=== PATIENT | female | born 1995 | race Caucasian/White ===

== ENCOUNTER 2020-01-01 17:48 | Outpatient (CLI) | payer BC ==
[2020-01-01 18:56] LABS: APPEARANCE,URINE CLEAR; BILIRUBIN,URINE NEGATIVE (NEGATIVE); COLOR,URINE YELLOW; GLUCOSE, URINE NEGATIVE (NEGATIVE); KETONES,URINE TRACE mg/dL (NEGATIVE); LEUKOCYTE ESTERASE,URINE NEGATIVE (NEGATIVE); NITRITE,URINE NEGATIVE (NEGATIVE); PROTEIN,URINE NEGATIVE (NEGATIVE); URINE SPECIFIC GRAVITY 1.012; UROBILINOGEN,URINE NEGATIVE mg/dL (<2.0)
[2020-01-01 19:06] LABS: UR PRO/CREAT RATIO RESULT 0.1 mg/mg (0.0-0.2); URINE CREATININE 80.5 mg/dL (16-327); URINE PROTEIN 8.6 mg/dL (<12)
[2020-01-01 19:08] LABS: URINE AMPHETAMINES SCREEN NEGATIVE; URINE BARBITURATES SCREEN NEGATIVE; URINE BENZODIAZEPINES SCREEN NEGATIVE; URINE COCAINE SCREEN NEGATIVE; URINE MARIJUANA (THC) SCREEN NEGATIVE; URINE METHADONE SCREEN NEGATIVE; URINE PHENCYCLIDINE SCREEN NEGATIVE
[2020-01-01 19:14] LABS: HEMATOCRIT 33.1 % (36.0-47.0); HEMOGLOBIN 11.8 g/dL (12.0-15.5); MEAN CORPUSCULAR HEMOGLOBIN 32.2 pg (27.0-33.4); MEAN CORPUSCULAR HGB CONC 35.7 g/dL (32.0-36.0); MEAN CORPUSCULAR VOLUME 90 fl (80-97); PLATELET COUNT 134 10^3/uL (150-450); RED BLOOD COUNT 3.67 10^6/uL (3.72-5.28); RED CELL DISTRIBUTION WIDTH 13.5 % (11.5-14.0); WHITE BLOOD COUNT 6.2 10^3/uL (4.0-10.5)
[2020-01-01 19:27] LABS: ALBUMIN 3.6 g/dL (3.5-5.0); ALKALINE PHOSPHATASE 156 U/L (38-126); ANION GAP 9 (5-19); ASPARTATE AMINO TRANSFERASE 54 U/L (14-36); BILIRUBIN,DIRECT 0.1 mg/dL (0.0-0.4); BILIRUBIN,TOTAL 0.4 mg/dL (0.2-1.3); BLOOD UREA NITROGEN 11 mg/dL (7-20); CALCIUM 8.8 mg/dL (8.4-10.2); CARBON DIOXIDE 17 mmol/L (22-30); CHLORIDE 109 mmol/L (98-107); GLUCOSE 153 mg/dL (75-110); POTASSIUM 3.6 mmol/L (3.6-5.0); TOTAL PROTEIN 6.7 g/dL (6.3-8.2); URIC ACID 4.9 mg/dL (2.5-6.2)
--- NOTE | 2020-01-01 20:05 | Non Stress Test Report ---
Non Stress Test Datetime Report Generated by CPN: 01/01/2020 20:05 DEMOGRAPHIC EGA NST: 39.6 INDICATION Indication for Study (NST) Other: Gestational age greater than 32 weeks VITAL SIGNS Temperature - NST: 97.1 Pulse - NST: 90 RESP - NST: 17 NBPSYS NST: 116 NBPDIA NST: 77 MONITORING Monitor Explained: Monitor Explained; Test Explained; Patient Verbalized Understanding Time on Monitor: 01/01/2020 18:15 Time off Monitor: 01/01/2020 19:40 NST Duration: 85 NST INTERVENTIONS NST Interventions: PO Hydration; Reposition Patient Physician Notified NST: Dr. Doherty BABY A: [id number] BABY A Movement : Present Contraction Frequency : None FHR Baseline : 135 Accelerations : 15X15 Decelerations : None Variability : Moderate 6-25bpm NST Review: Meets Criteria for Reactive NST NST Review and Verified By : CLARA Klein NST Results: Reactive NST REPORT Report Trigger: Send Report
[2020-01-01 20:45] LABS: CHLAM PCR NOT DETECTED (NOT DETECT)
== END 2020-01-01 19:45 | disposition home or self-care (01) ==
LOC: LC 17:48
PROVIDERS: ATTEND Student in an Organized Health Care Education/Training Program
DX: O16.3 Unspecified maternal hypertension, third trimester (principal); Z3A.39 39 weeks gestation of pregnancy
CPT/HCPCS: 36415; 80053; 80307; 81001; 82570; 83615; 84156; 84550; 85027; 87081; 87491; 87591

== ENCOUNTER 2020-01-02 17:46 | Inpatient (IN) | payer BC ==
[2020-01-02] MEDS ORDERED: MAG HYDROX/AL HYDROX/SIMETH SUSP 30 ML UDCUP PO PRN (18:00)
[2020-01-02] MEDS ORDERED: ZOLPIDEM TARTRATE 5 MG TABLET PO PRN (18:00)
[2020-01-02] MEDS ORDERED: OXYTOCIN/NORMAL SALINE 20 UNIT/1,000 ML RTUINJ IV PRN (18:00)
[2020-01-02] MEDS ORDERED: RINGERS SOLUTION,LACTATED 300 ML IV ONE (18:00)
[2020-01-02] MEDS ORDERED: DINOPROSTONE 10 MG VAGINAL INSERT.SR PV ONE (18:00)
[2020-01-02] MEDS ORDERED: ACETAMINOPHEN 325 MG TABLET PO PRN (18:00)
[2020-01-02 18:26] LABS: APPEARANCE,URINE CLEAR; BILIRUBIN,URINE NEGATIVE (NEGATIVE); COLOR,URINE STRAW; GLUCOSE, URINE NEGATIVE (NEGATIVE); KETONES,URINE NEGATIVE (NEGATIVE); LEUKOCYTE ESTERASE,URINE TRACE (NEGATIVE); NITRITE,URINE NEGATIVE (NEGATIVE); PROTEIN,URINE NEGATIVE (NEGATIVE); URINE SPECIFIC GRAVITY 1.002; UROBILINOGEN,URINE NEGATIVE mg/dL (<2.0)
[2020-01-02 18:29] LABS: ABSOLUTE EOSINOPHILS # (AUTO) 0.1 10^3/uL (0.0-0.6); ABSOLUTE LYMPHOCYTES (AUTO) 1.7 10^3/uL (0.5-4.7); ABSOLUTE MONOCYTES (AUTO) 0.5 10^3/uL (0.1-1.4); ABSOLUTE NEUT (AUTO) 4.1 10^3/uL (1.7-8.2); BASOPHILS % (AUTO) 0.5 % (0-2); EOSINOPHILS % (AUTO) 1.6 % (0-6); HEMATOCRIT 33.9 % (36.0-47.0); LYMPHOCYTES % (AUTO) 26.7 % (13-45); MEAN CORPUSCULAR HEMOGLOBIN 32.1 pg (27.0-33.4); MEAN CORPUSCULAR HGB CONC 35.3 g/dL (32.0-36.0); MEAN CORPUSCULAR VOLUME 91 fl (80-97); MONOCYTES % (AUTO) 7.2 % (3-13); PLATELET COUNT 151 10^3/uL (150-450); RED BLOOD COUNT 3.73 10^6/uL (3.72-5.28); TOTAL CELLS COUNTED % (AUTO) 100 %; WHITE BLOOD COUNT 6.4 10^3/uL (4.0-10.5)
[2020-01-02] MEDS ORDERED: DINOPROSTONE 10 MG VAGINAL INSERT.SR ONE (18:33)
[2020-01-02] MEDS: RINGERS SOLUTION,LACTATED 1,000 ML IV PRN (18:35)
[2020-01-02 18:41] LABS: URINE AMPHETAMINES SCREEN NEGATIVE; URINE BARBITURATES SCREEN NEGATIVE; URINE BENZODIAZEPINES SCREEN NEGATIVE; URINE COCAINE SCREEN NEGATIVE; URINE METHADONE SCREEN NEGATIVE; URINE PHENCYCLIDINE SCREEN NEGATIVE
[2020-01-02 18:51] LABS: URINE MARIJUANA (THC) SCREEN NEGATIVE
--- NOTE | 2020-01-02 20:18 | Admission Physical ---
Datetime Report Generated by CPN: 01/02/2020 20:17 CURRENT ADMISSION Chief Complaint: Scheduled Induction of Labor Chief Complaint Other: Scheduled IOL at 40.0 wks EGA d/t A1GDM. Patient denies ctx, LOF or VB Good FM Last EFW 01/01/20 was 3565 gms or 7lb 14 oz complicated by Rubella non-immune and late transfer of care from [facility] Indication for Induction: Maternal Diabetes Admit Impression : Term, Intrauterine ; No Active Labor; Intact Membranes; Induction of Labor Admit Plan: Admit to Unit; Initiate Labor Protocol; Initiate Labor Induction Protocol ALLERGIES Medication Allergies: No Medication Allergies: No Known Allergies (01/02/2020) Latex: Latex Allergies OBSTETRICAL HISTORY EDC: 01/02/2020 00:00 : 1 Para: 0 Term: 0 : 0 SAB: 0 IAB: 0 Ectopic: 0 Livin Cesareans: 0 VBACs: 0 Multiple Births: 0 Gestational Diabetes: No Rh Sensitization: No Incompetent Cervix: No KAI: No Infertility: No ART Treatment: No Uterine Anomaly: No IUGR: No Hx Previous C/S: No Macrosomia: No Hx Loss/Stillborn: No PIH: No Hx : No Placenta Previa/Abruption: No Depression/PP Depression: No PTL/PROM: No Post Hemorrhage: No Current Procedures: Ultrasound Obstetrical History Comments: G1- Current SEE RECORDS Alcohol: Yes Marijuana : No Cocaine: No Other Illicit Drugs: No Cigarettes: Never Smoker. [id number] MEDICAL HISTORY Diabetes: Yes Diabetes Type: Gestational Diabetes Blood Transfusion: No Pulmonary Disease (Asthma, TB): No Breast Disease: No Hypertension: No Salicylic Acid Blender Surgery: No Heart Disease: No Hosp/Surgery: No Autoimmune Disorder: No Anesthetic Complications: No Kidney Disease: No Abnormal Pap Smear: No Neuro/Epilepsy: No Psychiatric Disorders: No Other Medical Diseases: No Hepatitis/Liver Disease: No Significant Family History: No Varicosities/Phlebitis: No Trauma/Violence : No Thyroid Dysfunction: No INFECTIOUS HISTORY Gonorrhea: No Genital Herpes: No Chlamydia: No Tuberculosis: No Syphilis: No Hepatitis: No HIV/AIDS Exposure: No Rash or Viral Illness: No HPV: No PHYSICAL EXAM General: Normal HEENT: Normal Neurologic: Normal Thyroid: Normal Heart: Normal Lungs: Normal Breast: Normal Back: Normal Abdomen: Normal Genitourinary Exam: Normal Extremities: Normal DTRs: Normal Pelvic Type: Adequate Vital Signs: Reviewed VAGINAL EXAM Dilatation: 2 Effacement: 50 Station: -3 Contraction Comments: no regular MEMBRANES Pooling: Negative Membranes: Intact FETUS A EGA: 40.0 Monitoring: External US FHR- Baseline: 130 Variability: Moderate 6-25bpm Accelerations: 15X15 Decelerations: None FHR Category: Category I Estimated Weight (gm): 3565 Presentation: Vertex Admit Comment: G1 at 40.0 wks with complicated by A1GDM, late to PNC from [facility] and RNI for IOL -Admit to LDR -NPO except chips, popsicles and ice. LR at 125cc/hr -CEFM and toco -cervidil at 1845 -GBS tested at [facility]: pending, will try to obtain records -O positive -RNI, MMR -cervidil overnight, remove at 0645 for one hour break then pitocin low dose protocol. May remove earlier PRN labor/ distress -Patient plans epidural for delivery PLANS FOR LABOR AND DELIVERY Labor and Delivery: None Pain Management: Epidural Feeding Preference: Both Benefit of Breast Feed Discussed: Yes Circumcision: No INFORMED CONSENT Informed Consent Obtained: Vaginal Delivery; Section Delivery; Induction of Labor; Risks, Benefits and Alternatives Discussed Signature: with User ID: [email or web address] : with User ID: [email or web address]
[2020-01-02] MEDS ORDERED: ZOLPIDEM TARTRATE 5 MG TABLET ONE (22:18)
[2020-01-03] MEDS ORDERED: OXYTOCIN/NORMAL SALINE 20 UNIT/1,000 ML RTUINJ IV PRN (07:11)
[2020-01-03] MEDS ORDERED: OXYTOCIN/NORMAL SALINE 20 UNIT/1,000 ML RTUINJ ONE (07:58)
[2020-01-03] MEDS ORDERED: MISOPROSTOL 0.2 MG TABLET ONE (07:59)
[2020-01-03] MEDS ORDERED: OXYTOCIN 10 UNIT/ML VIAL ONE (07:59)
[2020-01-03] MEDS ORDERED: LIDOCAINE 0.5% INJ-PF (5 MG/ML) 50 ML SDV ONE (07:59)
[2020-01-03] MEDS ORDERED: HYDROMORPHONE HCL INJ/PF 2 MG/ML AMPULE IV ONE (09:58)
[2020-01-03] MEDS ORDERED: HYDROMORPHONE HCL INJ/PF 2 MG/ML AMPULE ONE (10:00)
[2020-01-04 12:05] LABS: ABSOLUTE LYMPHOCYTES (AUTO) 1.4 10^3/uL (0.5-4.7); ABSOLUTE MONOCYTES (AUTO) 0.5 10^3/uL (0.1-1.4); ABSOLUTE NEUT (AUTO) 4.8 10^3/uL (1.7-8.2); BASOPHILS % (AUTO) 0.6 % (0-2); EOSINOPHILS % (AUTO) 0.5 % (0-6); HEMATOCRIT 34.4 % (36.0-47.0); HEMOGLOBIN 12.3 g/dL (12.0-15.5); MEAN CORPUSCULAR HEMOGLOBIN 32.3 pg (27.0-33.4); MEAN CORPUSCULAR HGB CONC 35.9 g/dL (32.0-36.0); MEAN CORPUSCULAR VOLUME 90 fl (80-97); MONOCYTES % (AUTO) 7.3 % (3-13); PLATELET COUNT 128 10^3/uL (150-450); RED BLOOD COUNT 3.82 10^6/uL (3.72-5.28); RED CELL DISTRIBUTION WIDTH 13.8 % (11.5-14.0); SEGMENTED NEUTROPHILS % (AUTO) 71.6 % (42-78); TOTAL CELLS COUNTED % (AUTO) 100 %; WHITE BLOOD COUNT 6.8 10^3/uL (4.0-10.5)
[2020-01-04] MEDS ORDERED: HYDROMORPHONE HCL INJ/PF 2 MG/ML AMPULE IV ONE (12:44)
[2020-01-04] MEDS ORDERED: HYDROMORPHONE HCL INJ/PF 2 MG/ML AMPULE ONE (12:47)
[2020-01-04] MEDS ORDERED: OXYTOCIN/NORMAL SALINE 20 UNIT/1,000 ML RTUINJ ONE ×2 (15:05→20:31)
[2020-01-04] MEDS ORDERED: EPHEDRINE SULFATE INJ 50 MG/1 ML AMPULE ONE (16:31)
[2020-01-04] MEDS ORDERED: BUPIVACAINE HCL 0.25 % INJ/PF (2.5 MG/1 ML) 30 ML VIAL ONE (16:32)
[2020-01-04] MEDS ORDERED: FENTANYL/BUPIVACAINE/NS/PF 300 MCG/150 ML RTUINJ EPI ONE (16:32)
[2020-01-04] MEDS ORDERED: CEFAZOLIN SODIUM 2 GM in DEXTROSE 5%-WATER 50 ML IV PRN (20:15)
[2020-01-04] MEDS ORDERED: CEFAZOLIN INJ 1 GM VIAL ONE (20:17)
[2020-01-04] MEDS ORDERED: CITRIC ACID/SODIUM CITRATE ORAL SOLN 15 ML UDCUP ONE (20:17)
[2020-01-04] MEDS ORDERED: LIDOCAINE 2% INJ-PF (20 MG/ML) 10 ML AMPUL ONE (20:27)
[2020-01-04] MEDS ORDERED: MORPHINE SULFATE 10 MG/ML INJ ONE ×2 (20:30→22:52)
[2020-01-04] MEDS ORDERED: OXYTOCIN 10 UNIT/ML VIAL ONE (20:30)
[2020-01-04] MEDS ORDERED: MIDAZOLAM 2 MG/2 ML INJ ONE (20:30)
[2020-01-04] MEDS ORDERED: ONDANSETRON HCL INJ/PF 4 MG/2 ML SDV ONE (20:31)
[2020-01-04] MEDS ORDERED: FENTANYL CITRATE INJ/PF 100 MCG/2 ML AMPUL ONE (21:40)
[2020-01-04] MEDS ORDERED: ACETAMINOPHEN 325 MG TABLET PO PRN (21:54)
[2020-01-04] MEDS ORDERED: HYDROMORPHONE HCL INJ/PF 2 MG/ML AMPULE IV PRN (21:54)
[2020-01-04] MEDS ORDERED: OXYTOCIN/NORMAL SALINE 20 UNIT/1,000 ML RTUINJ IV PRN (21:54)
[2020-01-04] MEDS ORDERED: DIPH/PERTUSS(ACELL)/TETANUS VAC/PF 0.5 ML SYR (>=10YO) IM PRN (21:54)
[2020-01-04] MEDS ORDERED: ACETAMINOPHEN 1,000 MG/100 ML RTUPB IV PRN (21:54)
[2020-01-04] MEDS ORDERED: PROMETHAZINE HCL INJ 25 MG/1 ML VIAL IV PRN (21:54)
[2020-01-04] MEDS ORDERED: SIMETHICONE 80 MG TAB.CHEW PO PRN (21:54)
[2020-01-04] MEDS ORDERED: OXYCODONE-ACETAMINOPHEN 5-325 MG TABLET PO PRN ×2 (21:54)
[2020-01-04] MEDS ORDERED: MEASLES,MUMPS&RUBELLA VACC/PF 0.5 ML VIAL SUBCUT PRN (21:54)
--- NOTE | 2020-01-04 21:54 | Brief Operative Note ---
BRIEF OPERATIVE REPORT DATE OF SURGERY: 01/04/20 TIME OF SURGERY: 21:00 PREOPERATIVE DIAGNOSIS: 40+1ega, , Arrest of Dilation at 6cm, A1GDM POSTOPERATIVE DIAGNOSIS: NATHALY - delivered SURGEON: KRISTINE PRATT FINDINGS: VFI delivered at 2113, Apgars 9/9, Weight 7#8oz, body cord. UOP 150ml, IVF 1500ml, EBL 600ml. QBL 737ml COMPLICATIONS: None ESTIMATED BLOOD LOSS: 600 TISSUE REMOVED OR ALTERED: placenta and cord TECHNICAL PROCEDURE: Primary section
--- NOTE | 2020-01-04 21:59 | Operative Report ---
Operative Report DATE OF SURGERY: 01/04/20 PREOPERATIVE DIAGNOSIS: 40+2ega, , Arrest of Dilation at 6cm, A1GDM POSTOPERATIVE DIAGNOSIS: NATHALY OPERATION: Primary section SURGEON: KRISTINE PRATT ANESTHESIA: Epidural TISSUE REMOVED OR ALTERED: placenta and cord COMPLICATIONS: None ESTIMATED BLOOD LOSS: 600 QUANTITATIVE BLOOD LOSS: 737 INTRAOPERATIVE FINDINGS: VFI delivered at 2114, Apgars 9/9, Weight 7#8oz, body cord. UOP 150ml, IVF 1500ml, EBL 600ml. QBL 737ml, normal bilateral tub es/ovaries, normal uterus PROCEDURE: Anesthesia provider: [[facility] CRNA, Jesu FLORES] Indications: [24yo at 40+2ega who was admitted for cervidil on 01/01 at 40wks for IOL due to A1GDM. EFW 7#14oz on 01/01/2020. On 01/02 cooks catheter was placed and then cervix was 4cm in the late after noon. She was pitocin rested on evening of 01/02 and then AROM at 0830 on 01/03 at 5cm. She was having regular uterine contractions and then changed cervix to 6cm. She has not changed her cervix in more than 6 hours now. Reviewed with patient regarding Arrest of dilation and baby with noted caput and concern for cephalopelvic disproportion. The risks, benefits, alternatives were reviewed and she desires to proceed with planned procedure.] Procedure: The patient was taken to the operating room where epidural anesthesia was found to be adequate. She was then prepped and draped in the normal sterile fashion and placed in the dorsal supine position with a leftward tilt. A Pfannenstiel skin incision was then made and carried through to the underlying layers of the fascia with the scalpel. The fascia was incised in the midline and the incision extended laterally with the Hunter scissors. The superior aspect of the fascial incision was then grasped with Srinivas clamps elevated and the underlying rectus muscles dissected off [bluntly]. Attention was then turned to the inferior aspect of the fascial incision which in a similar fashion was grasped, tented up with Srinivas clamps, and the rectus muscles dissected off [bluntly]. The rectus muscles were then in the midline and the peritoneum at the amount identified and entered [bluntly]. The peritoneal incision was then extended superiorly and inferiorly with good visualization of the bladder. The bladder blade was inserted and the vesicouterine peritoneum identified grasped with Niuean pickups and entered sharply with the Metzenbaum scissors. This incision was then extended laterally with the Metzenbaum scissors and a bladder flap created digitally. The bladder blade was then reinserted and the lower uterine segment incised in a transverse fashion with the scalpel. The uterine incision was then extended bluntly. The bladder blade was removed and the infant's head was delivered from cephalic presentation atraumatically. The nose and mouth were suctioned and the cord doubly clamped and cut. And the was handed off to waiting pediatricians. The placenta was then delivered spontaneously and the uterus exteriorized and cleared of all clots and debris. The uterine incision was then repaired with 1- 0 Vicryl in a running locked fashion. A second layer of the same suture was used to obtain hemostasis via imbrication of the initial layer. The bladder flap was then repaired with 3-0 chromic in a running fashion. The uterus was returned to the patient's abdomen and The gutters were cleared of all clots and debris. All operative sites were noted to be hemostatic. The fascia was reapproximated with 0 Vicryl in a running fashion from each lateral edge to the midline. The skin was closed with 3-0 Monocryl in a running subcuticular fashion with overlying Dermabond for additional dressing as well as wound closure. The patient tolerated the procedure well. Sponge lap needle and instrument counts are correct times 2. 2 g of Ancef were given prior to skin incision. The patient was taken to the recovery area awake and in stable condition.
[2020-01-04] MEDS ORDERED: KETOROLAC TROMETHAMINE INJ/PF 30 MG/1 ML SDV ONE (22:10)
[2020-01-04] MEDS ORDERED: ACETAMINOPHEN 1,000 MG/100 ML RTUPB IV ONE (22:10)
[2020-01-04] MEDS: KETOROLAC TROMETHAMINE INJ/PF 30 MG/1 ML SDV IV SCH (22:25)
[2020-01-04] MEDS ORDERED: MEPERIDINE HCL/PF INJ 25 MG/1 ML DISP.SYRIN ONE (22:51)
--- NOTE | 2020-01-04 23:00 | Warning Signs in Babies ---
VOD Warning Signs Datetime Report Generated by [facility]: 01/04/2020 23:00 VOD#608 -Warning Signs in Babies: Needs to be viewed. (01/01/2020 18:17:Kayy Carl RN)
--- NOTE | 2020-01-04 23:00 | Delivery Summary ---
Del Sum A-C Datetime Report Generated by CPN: 01/04/2020 23:00 DELIVERY PERSONNEL DELIVERY PERSONNEL: [id number] Delivery Doctor:: Maribel Doherty MD Anesthesiologist:: Gisele Meléndez MD MERCHANDISE ADJUSTMENT CLERK:: Artie Clark CRNA Labor and Delivery Nurse:: Kayy Carl RN Acid Operator:: Cindy Wu RN Neonatal Nurse Practitioner:: HAL Gomez Nursery Nurse:: Lucille Linton RN Splunk Architect/DESKTOP ARCHITECT: ST Michelle Splunk Architect/DESKTOP ARCHITECT: Sheron M MATERNAL INFORMATION Delivery Anesthesia: Epidural Medications After Delivery: Pitocin Drip 20 Units/1000ml NSS Delivery QBL: 737 Delivery QBL Comment: QBL for delivery 737ml Maternal Complications: Other Other Maternal Complications: GDM A1 LABOR SUMMARY EDC: 01/02/2020 00:00 No. Babies in Womb: 1 Attempted: No Labor Anesthesia: Epidural LABOR INFORMATION Reason for Induction: Maternal Diabetes Onset of Labor: 01/04/2020 08:27 Cervical Ripening Agents: Cervidil; Mckeon Balloon Oxytocin: Induction Group B Beta Strep: 1 NO GROUP B STREPTOCOCCUS RECOVERED Antibiotics # of Doses: 0 Antibiotics Time of Last Dose: n/a Steroids Given: None Reason Steroids Not Administered: Not Applicable MEMBRANES Membranes Rupture Method: Artificial Rupture of Membranes: 01/03/2020 08:27 Length of Rupture (hr): 36.78 Amniotic Fluid Color: Clear Amniotic Fluid Amount: Moderate Amniotic Fluid Odor: Normal STAGES OF LABOR Stage 3 hr: 0 Stage 3 min: 1 Total Time in Labor hr: 12 Total Time in Labor min: 48 CSECTION DELIVERY Primary Indication: Failure to progress Secondary Indication: N/A CSection Urgency: Non-Scheduled CSection Incidence: Primary Labor: Labor Elective: Nonelective CSection Incision: Lower Uterine Transverse BABY A INFORMATION Infant Delivery Date/Time: 01/04/2020 21:14 Method of Delivery: Nurse Controlled Delivery: No Born in Route : No : N/A Forceps: N/A Vacuum Extraction: N/A Shoulder Dystocia : No PRESENTATION/POSITION BABY A Presentation: Cephalic Cephalic Presentation: Vertex Vertex Position: Right Occipital Anterior Breech Presentation: N/A PLACENTA INFORMATION BABY A Placenta Delivery Time : 01/04/2020 21:15 Placenta Method of Delivery: Manual Removal Placenta Status: Delivered SCORES BABY A Heart Rate 1 min: >100 bpm Resp Effort 1 min: Good Cry Reflex Irritability 1 min: Cough or Sneeze or Pulls Away Muscle Tone 1 min: Active Motion Color 1 min: Body Ruso, Extremities Blue Resuscitation Effort 1 min: Tactile Stimulation SCORE 1 MIN: 9 Heart Rate 5 min: >100 bpm Resp Effort 5 min: Good Cry Reflex Irritability 5 min: Cough or Sneeze or Pulls Away Muscle Tone 5 min: Active Motion Color 5 min: Body Ruso, Extremities Blue Resuscitation Effort 5 min: Tactile Stimulation SCORE 5 MIN: 9 INFORMATION BABY A Gestational Age at Delivery: 40.2 Gestational Status: Full Term- 39- 40.6 Weeks Outcome : Liveborn Infant Condition : Stable Sex: Female IDENTIFICATION BABY A Verification Date/Time: 01/04/2020 21:26 ID Band Number: [id number] Mother's Name Verified: Yes RN Verifying : Dequan Olivo CLARA Additional Verifying Personnel: Mona Wu RN WEIGHT/LENGTH BABY A Birthweight (gm): 3395 Infant Weight (lb): 7 Weight (oz): 8 Length (in): 20.00 Infant Length (cm): 50.80 CORD INFORMATION BABY A No. Cord Vessels: 3 Nuchal Cord : left shoulder x 1 Cord Blood Taken: Yes-For Eval (Mom's Blood Type - or O+) Suction: Mouth; Nose ASSESSMENT BABY A Infant Complications: Multiple Variable Decels Physical Findings at Delivery: Caput Succedaneum Physical Findings- Other: see initial nursery assessment Respirations: Appears Normal Skin to Skin: Yes Picking Supervisor/ALS Called : No Infant Care By: HYPERBARIC TECH and RN Transferred To: Nursery BABY B INFORMATION : N/A
[2020-01-05] MEDS ORDERED: IBUPROFEN 800 MG TABLET PO SCH
[2020-01-05] MEDS: KETOROLAC TROMETHAMINE INJ/PF 30 MG/1 ML SDV IV SCH ×2 (05:32→14:06)
[2020-01-05] MEDS: RINGERS SOLUTION,LACTATED 1,000 ML IV PRN (05:35)
[2020-01-05 06:49] LABS: HEMATOCRIT 25.5 % (36.0-47.0); MEAN CORPUSCULAR HGB CONC 35.1 g/dL (32.0-36.0); MEAN CORPUSCULAR VOLUME 91 fl (80-97); PLATELET COUNT 110 10^3/uL (150-450); RED CELL DISTRIBUTION WIDTH 13.9 % (11.5-14.0); WHITE BLOOD COUNT 7.6 10^3/uL (4.0-10.5)
--- NOTE | 2020-01-05 10:18 | PDOC PROGRESS REPORT ---
Subjective-OB Progress Note for:: 01/05/20 - POD #1, s/p Primary c/section for failed IOL, Hx GDM. O+, rubella immune, Physical Exam (OB) Vital Signs: Temp Pulse Resp BP Pulse Ox 98.2 F 84 16 108/62 98 01/05/20 07:27 01/05/20 07:27 01/05/20 07:27 01/05/20 07:27 01/05/20 07:27 Intake & Output 01/04/20 01/05/20 01/06/20 06:59 06:59 06:59 Output Total 650 Balance -650 - General General Appearance: Appears well, Alert In distress: None - PIH/Pre-Eclampsia Clonus: Negative Headache: Absent Epigastric Pain: No Visual Changes: No - Dressing Removed: No Incision: Open, Well Approximated Closure Type: Surgical Glue - Lochia Lochia Amount: Scant < 10 ml Lochia Color: Rubra/Red - Abdomen Description: Soft, Round Hernia Present: No Fundal Description: Firm, Midline Fundal Height: u/u - u/2 - Respiratory Respiratory Status: No respiratory distress Breath sounds: Clear - Cardiovascular Rhythm: Regular Heart Sounds: Normal auscultation - Abdominal Inspection: Normal Distension: No distension Tenderness: Nontender - Genitourinary Genitourinary Note: needs to void, alexis d/c'd - Extremities Upper extremity: Normal inspection Lower extremities: Edema - Psychological Associated symptoms: Normal affect, Normal mood - Skin Skin Temperature: Warm Skin Moisture: Dry Objective-Diagnostic Laboratory: 01/05/20 06:15 01/04/20 01/05/20 11:42 06:15 WBC 6.8 7.6 RBC 3.82 2.80 L Hgb 12.3 9.0 L D Hct 34.4 L 25.5 L MCV 90 91 MCH 32.3 32.0 MCHC 35.9 35.1 RDW 13.8 13.9 Plt Count 128 L 110 L Seg Neutrophils % 71.6 Assessment and Plan(PN) - Assessment and Plan (1) Acute blood loss anemia Is this a current diagnosis for this admission?: Yes (2) Arrest of dilation, delivered, current hospitalization Is this a current diagnosis for this admission?: Yes (3) Gestational diabetes mellitus (GDM) in childbirth, diet controlled Is this a current diagnosis for this admission?: Yes (4) Gestational thrombocytopenia Qualifiers: Trimester: third trimester Qualified Code(s): O99.113 - Other diseases of the blood and blood-forming organs and certain disorders involving the immune mechanism complicating , third trimester; D69.6 - Thrombocytopenia, unspecified Is this a current diagnosis for this admission?: Yes (5) S/P primary low transverse Is this a current diagnosis for this admission?: Yes Plan:: Routine PP/ Post Op orders, ambulation encouraged - Time Spent with Patient Time with patient: Less than 15 minutes Medications reviewed and adjusted accordingly: Yes - Disposition Anticipated Discharge: Home Within: within 48 hours
[2020-01-05] MEDS: PRENATAL VITAMIN W DHA CAPSULE PO SCH (11:20)
[2020-01-05] MEDS: DOCUSATE SODIUM 100 MG CAPSULE PO SCH ×2 (11:20→17:35)
[2020-01-05] MEDS: IBUPROFEN 800 MG TABLET PO SCH (23:20)
[2020-01-06] MEDS: IBUPROFEN 800 MG TABLET PO SCH ×2 (05:00→12:37)
[2020-01-06] MEDS: PRENATAL VITAMIN W DHA CAPSULE PO SCH (09:37)
[2020-01-06] MEDS: DOCUSATE SODIUM 100 MG CAPSULE PO SCH (09:37)
--- NOTE | 2020-01-06 09:52 | PDOC DISCHARGE SUMMARY ---
Impression - Admit/DC Date/PCP Admission Date/Primary Care Provider: 01/02/20 17:46 Discharge Date: 01/06/20 - POD #2, pt doing well, desires to go home today, , O+, Rubella Immune - Discharge Diagnosis (1) Acute blood loss anemia Is this a current diagnosis for this admission?: Yes (2) Arrest of dilation, delivered, current hospitalization Is this a current diagnosis for this admission?: Yes (3) Gestational diabetes mellitus (GDM) in childbirth, diet controlled Is this a current diagnosis for this admission?: Yes (4) Gestational thrombocytopenia Is this a current diagnosis for this admission?: Yes (5) S/P primary low transverse Is this a current diagnosis for this admission?: Yes - Additional Information Resuscitation Status: Full Code Discharge Diet: As Tolerated, Regular Discharge Activity: Activity As Tolerated, No Driving, No Lifting Over 10 Pounds, Pelvic Rest Prescriptions: Ibuprofen [Motrin 800 mg Tablet] 800 mg PO Q6 #60 tablet Oxycodone HCl/Acetaminophen [Percocet 5-325 mg Tablet] 1 tab PO Q4HP PRN #30 tablet PRN Reason: Pain Scale Of 4 Home Medications: Vits96/Iron Fum/Folic [ Tablet] 1 each PO DAILY 01/01/20 Ibuprofen [Motrin 800 mg Tablet] 800 mg PO Q6 #60 tablet 01/06/20 Oxycodone HCl/Acetaminophen [Percocet 5-325 mg Tablet] 1 tab PO Q4HP PRN #30 tablet 01/06/20 HPI Reason(s) for Admission: Induction of Labor, Gestional Diabetes Intrapartum Procedure(s): : Low Cervical, Transverse Hospital Course Hospital Course: routine Results Laboratory Results: WBC 7.6 10^3/uL (4.0-10.5) 01/05/20 06:15 RBC 2.80 10^6/uL (3.72-5.28) L 01/05/20 06:15 Hgb 9.0 g/dL (12.0-15.5) L D 01/05/20 06:15 Hct 25.5 % (36.0-47.0) L 01/05/20 06:15 MCV 91 fl (80-97) 01/05/20 06:15 MCH 32.0 pg (27.0-33.4) 01/05/20 06:15 MCHC 35.1 g/dL (32.0-36.0) 01/05/20 06:15 RDW 13.9 % (11.5-14.0) 01/05/20 06:15 Plt Count 110 10^3/uL (150-450) L 01/05/20 06:15 Lymph % (Auto) 20.0 % (13-45) 01/04/20 11:42 [place] % (Auto) 7.3 % (3-13) 01/04/20 11:42 Eos % (Auto) 0.5 % (0-6) 01/04/20 11:42 Baso % (Auto) 0.6 % (0-2) 01/04/20 11:42 Absolute Neuts (auto) 4.8 10^3/uL (1.7-8.2) 01/04/20 11:42 Absolute Lymphs (auto) 1.4 10^3/uL (0.5-4.7) 01/04/20 11:42 Absolute Monos (auto) 0.5 10^3/uL (0.1-1.4) 01/04/20 11:42 Absolute Eos (auto) 0.0 10^3/uL (0.0-0.6) 01/04/20 11:42 Absolute Basos (auto) 0.0 10^3/uL (0.0-0.2) 01/04/20 11:42 Seg Neutrophils % 71.6 % (42-78) 01/04/20 11:42 Urine Color STRAW 01/02/20 17:55 Urine Appearance CLEAR 01/02/20 17:55 Urine pH 7.0 (5.0-9.0) 01/02/20 17:55 Ur Specific [place] 1.002 01/02/20 17:55 Urine Protein NEGATIVE mg/dL (NEGATIVE) 01/02/20 17:55 Urine Glucose (UA) NEGATIVE mg/dL (NEGATIVE) 01/02/20 17:55 Urine Ketones NEGATIVE mg/dL (NEGATIVE) 01/02/20 17:55 Urine Blood NEGATIVE (NEGATIVE) 01/02/20 17:55 Urine Nitrite NEGATIVE (NEGATIVE) 01/02/20 17:55 Urine Bilirubin NEGATIVE (NEGATIVE) 01/02/20 17:55 Urine Urobilinogen NEGATIVE mg/dL (<2.0) 01/02/20 17:55 Ur Leukocyte Esterase TRACE (NEGATIVE) H 01/02/20 17:55 Urine Ascorbic Acid NEGATIVE (NEGATIVE) 01/02/20 17:55 Urine Opiates Screen NEGATIVE 01/02/20 17:55 Urine Methadone Screen NEGATIVE 01/02/20 17:55 Ur Barbiturates Screen NEGATIVE 01/02/20 17:55 Ur Phencyclidine Scrn NEGATIVE 01/02/20 17:55 Ur Amphetamines Screen NEGATIVE 01/02/20 17:55 U Benzodiazepines Scrn NEGATIVE 01/02/20 17:55 Urine Cocaine Screen NEGATIVE 01/02/20 17:55 U Marijuana (THC) Screen NEGATIVE 01/02/20 17:55 RPR NONREACTIVE (NONREACTIVE) 01/02/20 18:20 Blood Type O POSITIVE 01/02/20 18:20 Antibody Screen NEGATIVE 01/02/20 18:20 Plan Plan of Treatment: d/c home, pt to call A for incsion check in one week. check random fasting and 2 hour blood sugars and document. Bring sugar log to PP visit Time Spent: Less than 30 Minutes
[2020-01-06 15:09] VITALS: BP 124/74
== END 2020-01-06 16:01 | disposition home or self-care (01) | DRG 787 ==
LOC: LR 17:46 → 2N 01-05 00:02
PROVIDERS: ADMIT Obstetrics & Gynecology; ATTEND Obstetrics & Gynecology
PROC: 3E033VJ Introduction of Other Hormone into Peripheral Vein, Percutaneous Approach (ICD-10-PCS; 2020-01-03)
PROC: 10907ZC Drainage of Amniotic Fluid, Therapeutic from Products of Conception, Via Natural or Artificial Opening (ICD-10-PCS; 2020-01-03)
PROC: 10D00Z1 Extraction of Products of Conception, Low, Open Approach (ICD-10-PCS; principal; 2020-01-04)
DX: O24.420 Gestational diabetes mellitus in childbirth, diet controlled (principal); D62 Acute posthemorrhagic anemia; O99.13 Other diseases of the blood and blood-forming organs and certain disorders involving the immune mechanism complicating the puerperium; O48.0 Post-term pregnancy; O90.81 Anemia of the puerperium; D69.6 Thrombocytopenia, unspecified; O61.0 Failed medical induction of labor; O69.81X0 Labor and delivery complicated by cord around neck, without compression, not applicable or unspecified; Z91.040 Latex allergy status; Z3A.40 40 weeks gestation of pregnancy; Z37.0 Single live birth
CPT/HCPCS: 1961; 36415; 59025; 80307; 81005; 85025; 85027; 86592; 86850; 86900; 86901; 94760; C1726; J0131; J0690; J1170; J1885; J2175; J2250; J2270; J2405; J2590; J3010; J3490; J7120